=== PATIENT | female | born 1980 | race Caucasian/White ===

== ENCOUNTER 2016-04-12 12:06 | Emergency (ER) | payer OTHER ==
[~2016-04-12] VITALS: Ht 180.3 cm; Wt 61.1 kg
[~2016-04-12 12:06] MED LIST: OXYC-57 PO; PRENTAB26 PO; RANITIDINE PO
[2016-04-12 12:09] VITALS: TEMP 36.4; Ht 180.3 cm; Wt 61.1 kg
[2016-04-12] MEDS ORDERED: SODIUM CHLORIDE 0.9% 1000ML 1,000 ML IV STA (13:04)
[2016-04-12 13:11] VITALS: O2SAT 100
[2016-04-12 13:26] LABS: BASO % 0.3 %; BASO ABS # 0.02 K/uL (0-0.2); COMPLETE YES; EOS % 0.3 %; HEMATOCRIT 38.3 % (37-47); IG% 0.1 %; LYMPH % 26.1 %; LYMPH ABS # 1.83 K/uL (1.2-3.4); MEAN CELL VOLUME 91.6 fL (80-100); MEAN CORPUSCULAR HEMOGLOBIN 31.8 pg (25-34); MEAN CORPUSCULAR HGB CONC 34.7 g/dl (32-36); MEAN PLATELET VOLUME 9.5 fL (7.4-10.4); MONO % 3.6 %; NEUT % 69.6 %; PLATELET COUNT 170 K/uL (130-400); RED BLOOD COUNT 4.18 M/uL (4.2-5.4); WHITE BLOOD COUNT 7.02 K/uL (4.8-10.8)
[2016-04-12 13:32] LABS: MANUAL MICROSCOPIC REQUIRED? NO; REVIEW REQ? NO; URINE APPEARANCE CLEAR (CLEAR); URINE BILIRUBIN NEG (NEG); URINE COLOR YELLOW; URINE NITRITE NEG (NEG); URINE SPECIFIC GRAVITY 1.021 (1.000-1.030); UROBILINOGEN NEG (NEG)
--- NOTE | 2016-04-12 13:36 | DIAGNOSTIC IMAGING REPORT ---
CT SCAN OF THE BRAIN WITHOUT IV CONTRAST CLINICAL HISTORY: Weakness. Change in mental status. COMPARISON STUDY: No priors. TECHNIQUE: Unenhanced axial CT scan of the brain is performed from the vertex to the skull base. Automated dose control exposure was utilized. CT DOSE: 537.48 mGy.cm FINDINGS: Brain parenchyma: The brain parenchyma is normal in appearance. There is no hemorrhage, mass effect, or evidence of acute territorial ischemia by CT criteria. Jeffers-white matter is preserved. No extra-axial fluid collection is seen. Ventricles, sulci, cisterns: Normal in configuration. Intracranial vasculature: The visualized intracranial vasculature at the skull base is normal in appearance. Calvarium: Unremarkable. Sinuses and mastoids: The visualized paranasal sinuses are clear. The mastoid air cells are well pneumatized. Orbits: The bony orbits are grossly intact. IMPRESSION: No acute intracranial abnormality. Electronically signed by: Jhonatan Wallis M.D. 04/12/2016 1:35 PM Dictated Date/Time: 04/12/2016 1:33 PM
[2016-04-12 13:37] LABS: INR 0.9 (0.9-1.1); PARTIAL THROMBOPLASTIN RATIO 0.9
[2016-04-12 13:47] LABS: ALT/SGPT 20 U/L (12-78); BLOOD UREA NITROGEN 11 mg/dl (7-18); BUN/CREATININE RATIO 13.7 (10-20); CALCIUM 8.9 mg/dl (8.5-10.1); CARBON DIOXIDE 24 mmol/L (21-32); CHLORIDE 106 mmol/L (98-107); GLUCOSE 94 mg/dl (70-99); POTASSIUM 3.3 mmol/L (3.5-5.1); SODIUM 141 mmol/L (136-145)
[2016-04-12 13:52] LABS: ALKALINE PHOSPHATASE 49 U/L (45-117); AST/SGOT 9 U/L (15-37)
--- NOTE | 2016-04-12 14:08 | DIAGNOSTIC IMAGING REPORT ---
SINGLE VIEW CHEST CLINICAL HISTORY: Weakness. Change in mental status. FINDINGS: An AP, portable, upright chest radiograph is obtained. No prior studies are available for comparison at the time of dictation. The cardiomediastinal silhouette is unremarkable. The lungs and pleural spaces are clear. No pneumothorax is seen. The bony thorax is grossly intact. IMPRESSION: No active disease in the chest. Electronically signed by: Jhonatan Wallis M.D. 04/12/2016 2:06 PM Dictated Date/Time: 04/12/2016 2:06 PM
[2016-04-12 14:50] VITALS: BP 122/73; PULSE 70; O2SAT 99
--- NOTE | 2016-04-12 19:55 | EMERGENCY ROOM VISIT NOTE ---
History Report prepared by [employer]: Veronica Howard Under the Supervision of: Dr. Lester Lopes D.O. First contact with patient: 12:44 Chief Complaint: ILLNESS Stated Complaint: BLURRY VISION, SEEING LIGHTS, WOOZY, MILD CP History of Present Illness The patient is a 35 year old female who presents to the Emergency Room with complaints of a sudden near syncopal episode that occurred prior to arrival. The patient states that two weeks ago she began taking her control that she had stopped 10 years ago. She states that over the past two weeks she has had minor intermittent chest pain, so she stopped taking it. The patient states that today she was at work when she started feeling like she is going to pass out. She additionally noted blurry vision and feeling woozy. The patient states that she was unsure if her blood sugar has dropped so she tried drinking something. She states that her chest pain has been twinging in feeling, she denies any alleviating factors. The patient states that she consulted her PCP and was instructed to come to the emergency department for further work up. She denies any history hypertension, blood clots, diabetes, cancer, heart disease. The patient states that her blurry vision has subsided since arrival at the emergency department. She states that with her control her mood has been different. Pt denies LOC, headache, fevers, shortness of breath, nausea, vomiting, diarrhea, hemoptysis, pain with urination, and melena. Source of History: patient Onset: prior to arrival Position: other (global) Quality: other (near syncopal episode) Timing: other (sudden) Associated Symptoms: + chest pain Note: Associated Symptoms: blurry vision, woozy Review of Systems See HPI for pertinent positives & negatives. A total of 10 systems reviewed and were otherwise negative. Past Medical & Surgical No active medical problems Family History Seizures Social History Smoking Status: Never Smoker Smokeless Tobacco Use: No Alcohol Use: occasionally Marital Status: Housing Status: lives with family Occupation Status: employed Current/Historical Medications No Active Prescriptions or Reported Meds Allergies Coded Allergies: No Known Allergies (Unverified , 08/08/14) Physical Exam Vital Signs Date Time Temp Pulse Resp B/P Pulse Ox O2 Delivery O2 Flow Rate FiO2 04/12/16 14:50 70 16 122/73 99 Room Air 04/12/16 13:33 113 18 119/79 99 Room Air 04/12/16 13:18 113 119/79 105 117/83 94 137/80 04/12/16 13:11 100 Room Air 04/12/16 13:00 81 04/12/16 12:09 36.4 113 18 129/84 100 Room Air Physical Exam GENERAL: Sitting up in bed, disheveled, well nourished, no acute distress, non- toxic. Ambulates without difficulty. EYE EXAM: normal conjunctiva, PERRL and EOM's intact OROPHARYNX: no exudate, no erythema, lips, buccal mucosa, and tongue normal and mucous membranes are moist NECK: supple, no nuchal rigidity, no adenopathy, non-tender LUNGS: Clear to auscultation. Normal chest wall mechanics HEART: no murmurs, S1 normal and S2 normal ABDOMEN: abdomen soft, non-tender, normo-active bowel sounds, no masses, no rebound or guarding. BACK: Back is symmetrical on inspection and there is no deformity, no midline tenderness, no CVA tenderness. SKIN: no rashes and no bruising UPPER EXTREMITIES: upper extremities are grossly normal. LOWER EXTREMITIES: No pitting edema. NEURO EXAM: Normal sensorium, cranial nerves II-XII grossly intact, normal speech, no gross weakness of arms, no gross weakness of legs. No drift. Finger to nose intact. Gross sensation intact. Rapid alternating movements of upper extremities are intact. Medical Decision & Procedures ER Provider Diagnostic Interpretation: Xray results per the radiologist and my interpretation. Other results have been interpreted by the radiologist and reviewed by me. CT SCAN OF THE BRAIN WITHOUT IV CONTRAST CLINICAL HISTORY: Weakness. Change in mental status. COMPARISON STUDY: No priors. TECHNIQUE: Unenhanced axial CT scan of the brain is performed from the vertex to the skull base. Automated dose control exposure was utilized. CT DOSE: 537.48 mGy.cm FINDINGS: Brain parenchyma: The brain parenchyma is normal in appearance. There is no hemorrhage, mass effect, or evidence of acute territorial ischemia by CT criteria. Jeffers-white matter is preserved. No extra-axial fluid collection is seen. Ventricles, sulci, cisterns: Normal in configuration. Intracranial vasculature: The visualized intracranial vasculature at the skull base is normal in appearance. Calvarium: Unremarkable. Sinuses and mastoids: The visualized paranasal sinuses are clear. The mastoid air cells are well pneumatized. Orbits: The bony orbits are grossly intact. IMPRESSION: No acute intracranial abnormality. Electronically signed by: Jhonatan Wallis M.D. 04/12/2016 1:35 PM Dictated Date/Time: 04/12/2016 1:33 PM SINGLE VIEW CHEST CLINICAL HISTORY: Weakness. Change in mental status. FINDINGS: An AP, portable, upright chest radiograph is obtained. No prior studies are available for comparison at the time of dictation. The cardiomediastinal silhouette is unremarkable. The lungs and pleural spaces are clear. No pneumothorax is seen. The bony thorax is grossly intact. IMPRESSION: No active disease in the chest. Electronically signed by: Jhonatan Wallis M.D. 04/12/2016 2:06 PM Dictated Date/Time: 04/12/2016 2:06 PM Laboratory Results 04/12/16 13:15 Red Blood Count 4.18, Mean Corpuscular Volume 91.6, Mean Corpuscular Hemoglobin 31.8, Mean Corpuscular Hemoglobin Concent 34.7, Mean Platelet Volume 9.5, Neutrophils (%) (Auto) 69.6, Lymphocytes (%) (Auto) 26.1, Monocytes (%) (Auto) 3.6, Eosinophils (%) (Auto) 0.3, Basophils (%) (Auto) 0.3, Neutrophils # (Auto) 4.89, Lymphocytes # (Auto) 1.83, Monocytes # (Auto) 0.25, Eosinophils # (Auto) 0.02, Basophils # (Auto) 0.02 04/12/16 13:15 Test 04/12/16 13:10 04/12/16 13:13 04/12/16 13:15 Urine Color YELLOW Urine Appearance CLEAR (CLEAR) Urine pH 5.0 (4.5-7.5) Urine Specific Glenn 1.021 (1.000-1.030) Urine Protein NEG (NEG) Urine Glucose (UA) NEG (NEG) Urine Ketones NEG (NEG) Urine Occult Blood NEG (NEG) Urine Nitrite NEG (NEG) Urine Bilirubin NEG (NEG) Urine Urobilinogen NEG (NEG) Urine Leukocyte Esterase NEG (NEG) Bedside Glucose 94 mg/dl (70-90) White Blood Count 7.02 K/uL (4.8-10.8) Red Blood Count 4.18 M/uL (4.2-5.4) Hemoglobin 13.3 g/dL (12.0-16.0) Hematocrit 38.3 % (37-47) Mean Corpuscular Volume 91.6 fL (80-100) Mean Corpuscular Hemoglobin 31.8 pg (25-34) Mean Corpuscular Hemoglobin Concent 34.7 g/dl (32-36) Platelet Count 170 K/uL (130-400) Mean Platelet Volume 9.5 fL (7.4-10.4) Neutrophils (%) (Auto) 69.6 % Lymphocytes (%) (Auto) 26.1 % Monocytes (%) (Auto) 3.6 % Eosinophils (%) (Auto) 0.3 % Basophils (%) (Auto) 0.3 % Neutrophils # (Auto) 4.89 K/uL (1.4-6.5) Lymphocytes # (Auto) 1.83 K/uL (1.2-3.4) Monocytes # (Auto) 0.25 K/uL (0.11-0.59) Eosinophils # (Auto) 0.02 K/uL (0-0.5) Basophils # (Auto) 0.02 K/uL (0-0.2) RDW Standard Deviation 42.9 fL (36.4-46.3) RDW Coefficient of Variation 12.8 % (11.5-14.5) Immature Granulocyte % (Auto) 0.1 % Immature Granulocyte # (Auto) 0.01 K/uL (0.00-0.02) Prothrombin Time 10.0 SECONDS (9.0-12.0) Prothromb Time International Ratio 0.9 (0.9-1.1) Activated Partial Thromboplast Time 24.2 SECONDS (21.0-31.0) Partial Thromboplastin Ratio 0.9 D-Dimer < 190 ug/L FEU (0-500) Anion Gap 11.0 mmol/L (3-11) Est Creatinine Clear Calc Drug Dose 96.5 ml/min Estimated GFR () 112.3 Estimated GFR (Non- 96.9 BUN/Creatinine Ratio 13.7 (10-20) Calcium Level 8.9 mg/dl (8.5-10.1) Total Bilirubin 0.5 mg/dl (0.2-1) Direct Bilirubin 0.1 mg/dl (0-0.2) Aspartate Amino Transf (AST/SGOT) 9 U/L (15-37) Alanine Aminotransferase (ALT/SGPT) 20 U/L (12-78) Alkaline Phosphatase 49 U/L (45-117) Troponin I < 0.015 ng/ml (0-0.045) Total Protein 7.0 gm/dl (6.4-8.2) Albumin 4.0 gm/dl (3.4-5.0) Laboratory results per my review. Medications Administered Medications (Trade) Dose Ordered Sig/Moises Route Start Time Stop Time Status Last Admin Dose Admin Sodium Chloride (Nss 1000ml) 1,000 ml @ 999 mls/hr Q1H1M STAT IV 04/12/16 13:04 04/12/16 15:02 DC 04/12/16 13:24 999 MLS/HR ECG Indication: syncope Rate (beats per minute): 97 Rhythm: sinus rhythm Findings: PVC, other (normal axis, septal q waves) ED Course ED COURSE: Vital signs were reviewed and showed tachycardic The patients medical record was reviewed The above diagnostic studies were performed and reviewed. ED treatments and interventions as stated above. 1246: The patient was evaluated in room C10. A complete history and physical examination was performed. 1304: Ordered Sodium Chloride 1000 ml @ 999 mls/hr IV. 1440: Upon reevaluation, the patient is resting comfortably.I discussed my findings with the patient and she understands and agrees with the treatment plan. Based on the patients age, coexisting illnesses, exam and lab findings the decision to treat as an outpatient was made. The patient remained stable while under my care. The patient appeared well at the time of discharge. Medical Decision Differential diagnosis includes etiologies such as vasovagal event, infection, hypoglycemia, electrolyte abnormalities, cardiac sources, intracerebral event, toxicologic, neurologic, as well as others were entertained. Patient is a 35-year-old female who presents the ER for feeling lightheaded dizzy and near syncopal. She notes that she has not felt good for the past 2 weeks following starting her control. Patient has no weakness or numbness in arms or legs. She notes that she was able to catch herself and she did not fall or pass out. When this started she was feeling lightheaded and seeing spots and became flushed. Patient completed neurologically intact. She is not complaints. No chest pain within the past couple days. Chest x-ray EKG and d-dimer were negative. No cardiac risk factors. Patient was updated at bedside and following CT head which was negative. D-dimer as stated before was negative and puts her at a history of a low risk for any PEs or CVTs although her symptoms completely resolved with fluids. I do feel this is most likely vasovagal. Vitals remained stable. CBC along with BMP, LFTs, bilirubin and troponin were negative. UA were negative. Impression Primary Impression: Vasovagal near syncope Additional Impression: Hypokalemia Scribe Attestation The scribe's documentation has been prepared under my direction and personally reviewed by me in its entirety. I confirm that the note above accurately reflects all work, treatment, procedures, and medical decision making performed by me. Departure Information Dispostion Home / Self-Care Prescriptions No Active Prescriptions or Reported Meds Referrals Magnus Ruiz M.D. (PCP) Forms HOME CARE DOCUMENTATION FORM, IMPORTANT VISIT INFORMATION, WORK / SCHOOL INSTRUCTIONS Patient Instructions ED Near Syncope Vasovagal, My [facility] Additional Instructions Please follow up with your primary care doctor with in the next 24 hours. Any worsening of your symptoms, please return to the ED immediately. This includes any weakness of your arms or legs, passing out, numbness, severe headaches, shortness of breath, or any other concerning signs or symptoms from your standpoint. Problem Qualifiers
== END 2016-04-12 14:55 | disposition home or self-care (01) ==
LOC: C.EDB 12:09 → C.EDC 14:55
DX: R55 Syncope and collapse (principal); E87.6 Hypokalemia; Z82.0 Family history of epilepsy and other diseases of the nervous system

== ENCOUNTER → 2016-08-25 | Outpatient (CLI) | payer OTHER | END | disposition home or self-care (01) | LOC: C.PAPS 13:34 | PROVIDERS: ATTEND Physician Assistant | DX: Z12.4 Encounter for screening for malignant neoplasm of cervix (principal) ==